=== PATIENT | female | born 1945 | race Caucasian/White ===

== ENCOUNTER → 2016-06-23 | Outpatient (CLI) | payer OTHER ==
[~2016-06-23] MED LIST: GABA300C10 PO; LEVO50TA5 PO; LEVO750T26 PO; MELO-184 PO; SERT100T5 PO
== END | disposition home or self-care (01) ==
LOC: CFH 08:35
PROVIDERS: ATTEND Internal Medicine
DX: Z12.31 Encounter for screening mammogram for malignant neoplasm of breast (principal)
CPT/HCPCS: G0202

== ENCOUNTER → 2016-09-29 | Outpatient (CLI) | payer OTHER ==
[~2016-09-29] MED LIST changes: +CALC1CAP8 PO; +CYCL-259 PO; +HYDR-3138 PO; +MULT-230 PO; +MULT-726 PO; +PRAV40TA2 PO
== END | disposition home or self-care (01) ==
LOC: STAR 09:20
PROVIDERS: ATTEND Orthopaedic Surgery
DX: Z01.818 Encounter for other preprocedural examination (principal); G56.22 Lesion of ulnar nerve, left upper limb; G56.02 Carpal tunnel syndrome, left upper limb
CPT/HCPCS: 93005

== ENCOUNTER 2016-10-06 05:35 | Day surgery (SDC) | payer OTHER ==
[~2016-10-06] VITALS: Ht 154.9 cm; Wt 74.5 kg
[2016-10-06] MEDS ORDERED: LACTATED RINGERS 1,000 ML IV SCH (06:02)
[2016-10-06] MEDS ORDERED: BUPIVACAINE/PF 0.5% ONE (06:07)
[2016-10-06 06:09] VITALS: BP 129/84
[2016-10-06 06:13] VITALS: BP 129/84
[2016-10-06] MEDS ORDERED: BACITRACIN 50,000 UNIT ONE (06:16)
[2016-10-06] MEDS ORDERED: LIDOCAINE/PF 1%, 30ML ONE (06:16)
[2016-10-06] MEDS ORDERED: MIDAZOLAM 1 MG/ML, 2ML ONE (06:52)
[2016-10-06] MEDS ORDERED: FENTANYL PF 250 MCG/5ML ONE (06:52)
[2016-10-06] MEDS ORDERED: ACETAMINOPHEN 325 MG TABLET PO PRN (08:00)
[2016-10-06] MEDS ORDERED: EPHEDRINE 50 MG/ML, 1ML IVPush PRN (08:00)
[2016-10-06] MEDS ORDERED: HYDROcodone/APAP 7.5-325MG/15ML UDC PO PRN (08:00)
[2016-10-06] MEDS ORDERED: MIDAZOLAM 1 MG/ML, 2ML IV PRN (08:00)
[2016-10-06] MEDS ORDERED: METOPROLOL 1 MG/ML, 5ML IV PRN (08:00)
[2016-10-06] MEDS ORDERED: FENTANYL PF 100 MCG/2ML IV PRN (08:00)
[2016-10-06] MEDS ORDERED: ONDANSETRON 2MG/ML, 2ML IVPush PRN (08:00)
[2016-10-06] MEDS ORDERED: PROMETHAZINE 25 MG/ML, 1ML IV PRN (08:00)
[2016-10-06] MEDS ORDERED: OXYcodone 5 MG/5 ML ORAL.SOL UDC PO PRN (08:00)
[2016-10-06] MEDS ORDERED: ALBUTEROL SULFATE 2.5 MG/3 ML NPPB PRN (08:00)
[2016-10-06] MEDS ORDERED: LABETALOL 5MG/ML, 20ML IV PRN (08:00)
[2016-10-06] MEDS ORDERED: HYDROmorphone 1 MG/ML, 1ML IV PRN (08:00)
[2016-10-06] MEDS ORDERED: MEPERIDINE/PF 25MG/0.5ML IVPush PRN (08:00)
[2016-10-06] MEDS ORDERED: hydrALAzine 20 MG/ML, 1ML IV PRN (08:00)
[2016-10-06] MEDS ORDERED: ONDANSETRON 2MG/ML, 2ML ONE (11:08)
[2016-10-06] MEDS ORDERED: KETOROLAC 30 MG/1 ML ONE (11:08)
[2016-10-06] MEDS ORDERED: PROPOFOL 10 MG/ML, 20ML ONE (11:08)
[2016-10-06] MEDS ORDERED: DEXAMETHASONE 4 MG/ML, 1ML ONE (11:08)
[2016-10-06] MEDS ORDERED: CEFAZOLIN 1,000 MG ONE (11:08)
== END 2016-10-06 11:35 ==
LOC: OUT 05:35
PROVIDERS: ATTEND Orthopaedic Surgery
DX: G56.02 Carpal tunnel syndrome, left upper limb (principal); G56.22 Lesion of ulnar nerve, left upper limb; Z87.39 Personal history of other diseases of the musculoskeletal system and connective tissue; Z90.710 Acquired absence of both cervix and uterus; Z98.890 Other specified postprocedural states
CPT/HCPCS: 29848; 64718; 64719; J0690; J1100; J1885; J2250; J2405; J2704; J3010; J3490; J7120

== ENCOUNTER 2017-03-13 11:10 | Emergency (ER) | payer OTHER ==
[~2017-03-13] VITALS: Ht 154.9 cm; Wt 75.3 kg
[~2017-03-13 11:10] MED LIST changes: -HYDR-3138 PO; +HYDR-3237 PO; -MELO-184 PO; +MELO15TA24 PO
[2017-03-13 11:20] VITALS: BP 121/77
[2017-03-13] MEDS ORDERED: SODIUM CHLORIDE 0.9% 1,000ML IVBOLUS ONE (12:30)
[2017-03-13 12:43] LABS: HEMATOCRIT 45.6 % (34.6-47.8); HEMOGLOBIN 15.2 g/dL (11.7-16.4)
[2017-03-13 12:55] LABS: BLOOD UREA NITROGEN 11 mg/dL (7-18)
[2017-03-13] MEDS ORDERED: CEFTRIAXONE PMX 1GM/50ML 50 ML ONE (15:14)
[2017-03-13] MEDS ORDERED: CEFTRIAXONE PMX 1GM/50ML 50 ML IVPB ONE (15:30)
== END 2017-03-13 15:53 | disposition home or self-care (01) ==
LOC: ED 15:45
DX: N30.00 Acute cystitis without hematuria (principal); R00.0 Tachycardia, unspecified; D72.829 Elevated white blood cell count, unspecified
CPT/HCPCS: 36415; 71010; 80048; 81001; 82040; 83605; 85025; 87077; 87086; 87186; 96365; 99285; J0696; J7030

== ENCOUNTER → 2017-06-15 | Outpatient (CLI) | payer OTHER | END | disposition home or self-care (01) | LOC: CFH 08:09 | PROVIDERS: ATTEND Licensed Practical Nurse | DX: Z13.820 Encounter for screening for osteoporosis (principal); Z12.31 Encounter for screening mammogram for malignant neoplasm of breast; Z80.3 Family history of malignant neoplasm of breast; M81.0 Age-related osteoporosis without current pathological fracture; N95.8 Other specified menopausal and perimenopausal disorders | CPT/HCPCS: 77063; 77080; 77067 ==

== ENCOUNTER → 2020-01-17 | Outpatient (CLI) | payer MEDICARE ==
[~2020-01-17] MED LIST changes: -MULT-230 PO; +MULT-806 PO; +SERT100T32 PO; -SERT100T5 PO
== END | disposition home or self-care (01) ==
LOC: CFH 14:27
PROVIDERS: ATTEND Internal Medicine
DX: Z12.31 Encounter for screening mammogram for malignant neoplasm of breast (principal)
CPT/HCPCS: 76641; 77063; 77067